=== PATIENT | female | born 1985 | race Caucasian/White ===

== ENCOUNTER 2016-08-01 11:48 | Emergency (ER) | payer OTHER ==
[2016-08-01 13:14] LABS: HEMOGLOBIN 13.9 gm/dl (12.3-15.3); RED BLOOD COUNT 4.52 M/UL (4.00-5.10); WHITE BLOOD COUNT 7.8 K/UL (4.5-11.0)
[2016-08-01 13:25] LABS: BUN/CREATININE RATIO 8 (0-10)
== END 2016-08-01 14:00 | disposition home or self-care (01) ==
LOC: ER1 11:48
PROVIDERS: Physician Assistant Medical
DX: B34.9 Viral infection, unspecified (principal); F17.210 Nicotine dependence, cigarettes, uncomplicated; Z88.5 Allergy status to narcotic agent
CPT/HCPCS: 36415; 71020; 80053; 81001; 85025; 87081; 87880; 94640; 94664; 96361; 96374; 99283

== ENCOUNTER → 2016-11-02 | Outpatient (CLI) | payer OTHER | LOC: RAD 08:31 | DX: M54.2 Cervicalgia (principal); M54.5 Low back pain | CPT/HCPCS: 72050; 72072; 72110 ==